=== PATIENT | male | born 1980 | race Two or more races ===

== ENCOUNTER 2020-12-19 10:06 | Day surgery (SDC) | payer OTHER | END 2020-12-19 16:00 | disposition home or self-care (01) | LOC: AMB-ENDOS 10:06 | PROVIDERS: ATTEND Surgery | DX: K29.50 Unspecified chronic gastritis without bleeding (principal); K44.9 Diaphragmatic hernia without obstruction or gangrene; Z20.822 Contact with and (suspected) exposure to COVID-19 ==